=== PATIENT | female | born 1960 | race Caucasian/White ===

== ENCOUNTER 2019-03-21 23:06 | Observation (INO) ==
[2019-03-21] MEDS ORDERED: PANTOPRAZOLE 40 MG VIAL IV STA (23:58)
[2019-03-21] MEDS ORDERED: SODIUM CHLORIDE 0.9% 1,000 ML IV STA (23:58)
[2019-03-21] MEDS ORDERED: ONDANSETRON 4 MG/2 ML VIAL IV STA (23:58)
[2019-03-22 00:27] LABS: PT Patient Result 10.7 SECS; Partial Thromboplastin Time 24.8 SECS (0-40)
[2019-03-22 00:33] LABS: Basophils % 0.1 % (0.0-0.8); Eosinophils # 0.1 10*3/uL (0.0-0.87); Eosinophils % 0.4 % (0.00-10.9); Hematocrit 43.7 VOL% (35.7-47.0); Hemoglobin 14.5 GM/DL (12.0-16.0); Immature Granulocytes % 1.3 %; Immature Granulocytes Absolute 0.18 #; Lymphocytes # 1.3 10*3/uL (1.4-4.0); Lymphocytes % 9.1 % (21.3-54.2); Mean Corpuscular HGB Conc 33.2 GM/DL (32-36); Mean Corpuscular Volume 93.2 FL (87-102); Mean Platelet Volume 10.3 FL (9.6-12.0); Monocytes % 6.1 % (1.7-12.7); Platelet Count 216 T/CUMM (130-400); Red Blood Count 4.69 MC/CUMM (3.8-5.5); Red Cell Distribution Width 13.2 % (9.3-17.3); White Blood Count 13.9 T/CUMM (4-12)
[2019-03-22 00:42] LABS: Bilirubin,Total 1.1 MG/DL (0.2-1.0); Calcium 7.9 MG/DL (8.5-10.1); Osmolality,Calculated 279.7 MOS/KG (273-304); Total Protein 7.2 G/DL (6.4-8.3)
[2019-03-22] MEDS ORDERED: NICOTINE 21 MG/24 HR PATCH TRANSDERM PRN (02:29)
[2019-03-22] MEDS ORDERED: diphenhydrAMINE CAP 25 MG CAPSULE PO PRN (02:29)
[2019-03-22] MEDS ORDERED: ONDANSETRON 4 MG/2 ML VIAL IV PRN (02:29)
[2019-03-22] MEDS ORDERED: PROMETHAZINE 25 MG/1 ML VIAL IM PRN (02:29)
[2019-03-22] MEDS: SODIUM CHLORIDE 0.9% 1,000 ML IV SCH ×3 (03:25→18:35)
[2019-03-22 03:41] LABS: Risk Ratio 8.14
[2019-03-22 04:20] LABS: Basophils % 0.3 % (0.0-0.8); Eosinophils # 0.1 10*3/uL (0.0-0.87); Eosinophils % 0.5 % (0.00-10.9); Hematocrit 39.1 VOL% (35.7-47.0); Hemoglobin 12.7 GM/DL (12.0-16.0); Immature Granulocytes % 0.8 %; Immature Granulocytes Absolute 0.09 #; Lymphocytes # 1.7 10*3/uL (1.4-4.0); Lymphocytes % 14.5 % (21.3-54.2); Mean Corpuscular HGB Conc 32.5 GM/DL (32-36); Mean Corpuscular Volume 95.4 FL (87-102); Mean Platelet Volume 9.8 FL (9.6-12.0); Monocytes % 6.3 % (1.7-12.7); Neutrophils % 77.6 % (38.7-73.9); Platelet Count 184 T/CUMM (130-400); Red Cell Distribution Width 13.1 % (9.3-17.3); White Blood Count 11.6 T/CUMM (4-12)
[2019-03-22] MEDS: PANTOPRAZOLE 40 MG VIAL IV SCH ×2 (08:20→20:40)
[2019-03-22] MEDS ORDERED: CYCLOBENZAPRINE 10 MG TABLET PO PRN (08:53)
[2019-03-22] MEDS ORDERED: ACETAMINOPHEN 325 MG TABLET PO PRN (13:29)
[2019-03-22] MEDS: LISINOPRIL 10 MG TABLET PO SCH (20:37)
[2019-03-22] MEDS: CITALOPRAM 20 MG TABLET PO SCH (20:37)
[2019-03-22] MEDS: SIMVASTATIN 20 MG TABLET PO SCH (20:37)
[2019-03-22] MEDS ORDERED: SIMVASTATIN 10 MG TABLET PO SCH (21:00)
[2019-03-23] MEDS: SODIUM CHLORIDE 0.9% 1,000 ML IV SCH ×4 (02:14→21:41)
[2019-03-23 07:26] LABS: Basophils % 0.3 % (0.0-0.8); Eosinophils # 0.2 10*3/uL (0.0-0.87); Eosinophils % 2.2 % (0.00-10.9); Hematocrit 36.9 VOL% (35.7-47.0); Hemoglobin 11.9 GM/DL (12.0-16.0); Immature Granulocytes % 1.3 %; Immature Granulocytes Absolute 0.12 #; Lymphocytes # 2.1 10*3/uL (1.4-4.0); Lymphocytes % 22.5 % (21.3-54.2); Mean Corpuscular HGB Conc 32.2 GM/DL (32-36); Mean Corpuscular Volume 96.1 FL (87-102); Mean Platelet Volume 9.7 FL (9.6-12.0); Monocytes % 6.6 % (1.7-12.7); Neutrophils % 67.1 % (38.7-73.9); Platelet Count 165 T/CUMM (130-400); Red Blood Count 3.84 MC/CUMM (3.8-5.5); Red Cell Distribution Width 13.2 % (9.3-17.3); White Blood Count 9.4 T/CUMM (4-12)
[2019-03-23] MEDS: PANTOPRAZOLE 40 MG VIAL IV SCH ×2 (08:20→21:40)
[2019-03-23] MEDS ORDERED: LIDOCAINE 2% 5 ML VIAL ONE (10:00)
[2019-03-23] MEDS ORDERED: PROPOFOL 200 MG/20 ML VIAL IV ONE (10:00)
[2019-03-23] MEDS ORDERED: BISACODYL 5 MG TABLET PO ONE (12:00)
[2019-03-23] MEDS ORDERED: POLYETHYLENE GLYCOL POWDER 255 GM BOTTLE PO ONE (18:00)
[2019-03-23] MEDS: CITALOPRAM 20 MG TABLET PO SCH (21:40)
[2019-03-23] MEDS: LISINOPRIL 10 MG TABLET PO SCH (21:40)
[2019-03-23] MEDS: SIMVASTATIN 20 MG TABLET PO SCH (21:40)
[2019-03-24] MEDS: SODIUM CHLORIDE 0.9% 1,000 ML IV SCH ×2 (02:43→18:39)
[2019-03-24 04:40] LABS: Basophils % 0.5 % (0.0-0.8); Eosinophils # 0.3 10*3/uL (0.0-0.87); Eosinophils % 4.3 % (0.00-10.9); Hematocrit 34.9 VOL% (35.7-47.0); Hemoglobin 11.1 GM/DL (12.0-16.0); Immature Granulocytes Absolute 0.08 #; Lymphocytes # 2.1 10*3/uL (1.4-4.0); Lymphocytes % 26.8 % (21.3-54.2); Mean Corpuscular HGB Conc 31.8 GM/DL (32-36); Mean Corpuscular Volume 96.9 FL (87-102); Neutrophils % 59.4 % (38.7-73.9); Platelet Count 162 T/CUMM (130-400); Red Cell Distribution Width 13.1 % (9.3-17.3)
[2019-03-24] MEDS: PANTOPRAZOLE 40 MG VIAL IV SCH ×2 (09:20→21:05)
[2019-03-24] MEDS ORDERED: PROPOFOL 200 MG/20 ML VIAL IV ONE (10:00)
[2019-03-24] MEDS ORDERED: GLYCOPYRROLATE 0.4 MG/2 ML VIAL ONE (10:00)
[2019-03-24] MEDS: CITALOPRAM 20 MG TABLET PO SCH (21:05)
[2019-03-24] MEDS: LISINOPRIL 10 MG TABLET PO SCH (21:05)
[2019-03-24] MEDS: SIMVASTATIN 20 MG TABLET PO SCH (21:05)
[2019-03-24] MEDS: OMEGA 3 ACID ETHYL ESTERS 1 GM CAPSULE PO SCH (21:11)
[2019-03-25] MEDS: SODIUM CHLORIDE 0.9% 1,000 ML IV SCH (02:34)
[2019-03-25] MEDS: PANTOPRAZOLE 40 MG VIAL IV SCH (08:27)
[2019-03-25] MEDS: OMEGA 3 ACID ETHYL ESTERS 1 GM CAPSULE PO SCH (08:27)
[2019-03-25 11:57] VITALS: BP 114/75
== END 2019-03-25 12:14 | disposition home or self-care (01) ==
LOC: EDBD → EDUNIT# → N.ED 23:06 → N.EDINP 23:06 → SUATTDRO 03-22 02:29 → N.TELES 03-22 02:59
PROVIDERS: ADMIT Hospitalist; ATTEND Internal Medicine